=== PATIENT | male | born 2000 | race Caucasian/White ===

== ENCOUNTER 2023-12-28 13:17 | Day surgery (SDC) | payer OTHER, SELFPAY ==
[2023-12-28] MEDS: Ustekinumab 390 MG in Sodium Chloride 0.9% 250 ML 172 ML IV SCH (14:10)
[2023-12-28 14:22] VITALS: BP 115/69; TEMP 98.3
== END 2023-12-28 15:47 | disposition home or self-care (01) ==
LOC: ONC/OP 13:17
PROVIDERS: ATTEND Internal Medicine Gastroenterology
DX: K50.90 Crohn's disease, unspecified, without complications (principal); Z88.5 Allergy status to narcotic agent; Z91.018 Allergy to other foods
CPT/HCPCS: 96413; J3358; J7050